=== PATIENT | female | born 2000 | race African-American/Black ===

== ENCOUNTER 2021-05-14 23:21 | Emergency (ER) | payer BC, SELFPAY ==
--- NOTE | ~2021-05-14 | XR_ITS ---
EXAMINATION: XR chest 2V DATE: 05/15/2021 00:31 INDICATION: Chest pain. TECHNIQUE: Frontal and lateral views of the chest were obtained. COMPARISON: None. FINDINGS: The chest demonstrates clear lungs without pneumonia, pleural effusion, or pneumothorax. Th e heart size is normal. IMPRESSION: 1. No acute cardiopulmonary disease. Reviewed, dictated and finalized at location A. TENANCE INSPECTOR
[2021-05-14 23:26] VITALS: BP 146/74; PULSE 88; RESP 16; TEMP 35.9; O2SAT 100
--- NOTE | 2021-05-14 23:30 | ECG_ITS ---
Measurements Intervals [place] Rate: 79 P: 57 WA: 139 QRS: 33 QRSD: 88 T: 13 QT: 388 QTc: 445 Interpretive Statements SINUS RHYTHM WITH MARKED SINUS ARRHYTHMIA NONSPECIFIC T-WAVE ABNORMALITY- ANT/INF LEADS BASELINE ARTIFACT- I, II, AVR, V1-V2 BORDERLINE ECG Electronically Signed On 05-15-2021 5:50:24 BUILDING ENGINEER by Vik Bowers D.O.
[2021-05-15 01:04] LABS: Basophils Percent Auto 0.2 % (0.2-1.2); Eosinophils Absolute Auto 0.1 K/mm3 (0-0.3); Eosinophils Percent Auto 0.9 % (0-4.4); Hematocrit 38.2 % (37.0-47.0); Hemoglobin 12.2 g/dL (12.0-15.0); Immature Granulocyte Absolute 0.03 K/mm3 (0.00-0.031); Immature Granulocyte Percent A 0.3 % (0-0.5); Lymphocytes Absolute Auto 2.63 K/mm3 (0.9-3.2); Lymphocytes Percent Auto 28.8 % (18.3-44.2); Mean Corpuscular HGB Conc 31.9 g/dl (32-36); Mean Corpuscular Hemoglobin 27.9 pg (26-34); Mean Corpuscular Volume 87.2 fl (80-100); Mean Platelet Volume 8.7 fl (7.4-10.4); Monocytes Absolute Auto 0.6 K/mm3 (0.1-0.6); Monocytes Percent Auto 6.5 % (2.6-8.5); Neutrophils Absolute Auto 5.8 K/mm3 (1.3-6.7); Neutrophils Percent Auto 63.3 % (45.5-73.1); Platelet Count Result 397 k/mm3 (150-375); Red Blood Count 4.38 M/mm3 (4.2-5.4); Red Cell Distribution Width 12.8 % (11.5-14.5); White Blood Count 9.1 K/mm3 (4.5-10.0)
[2021-05-15 01:13] LABS: INR 0.9
[2021-05-15 01:14] LABS: Partial Thromboplastin Time 27.6 SECONDS (22.3-36.8)
[2021-05-15 01:15] LABS: Alanine Aminotransferase 15 U/L (4-35); Albumin Level 4.5 g/dL (3.5-5.1); Alkaline Phosphatase 101 U/L (38-126); Anion Gap 12 mmol/L (8-16); Aspartate Amino Transferase 27 U/L (14-36); Bilirubin,Total 0.4 mg/dL (0.2-1.3); Blood Urea Nitrogen 13 mg/dL (7-17); Calcium 9.5 mg/dL (8.4-10.2); Carbon Dioxide 23 mmol/L (22-30); Chloride 103 mmol/L (98-107); Estimated CRCL calculation 114 ml/min; Estimated Glomerular Filt Rate > 60; Glucose 91 mg/dL (65-110); Lipase 26 U/L (23-300); Potassium 3.9 mmol/L (3.4-5.0); Sodium 138 mmol/L (137-145)
[2021-05-15 01:26] LABS: Troponin I < 0.012 ng/mL (0.000-0.034)
[2021-05-15 01:32] VITALS: BP 141/72; PULSE 90; RESP 18; TEMP 36.2; O2SAT 100
--- NOTE | 2021-05-15 02:46 | ED.CHESTPAIN ---
HPI - Chest Pain General Chief Complaint: Chest Pain Stated Complaint: chest tightness Time Seen by Provider: 05/15/21 01:51 Source: patient History of Present Illness HPI narrative: Patient presents with chest tightness and dizziness. Patient reports she had symptoms around 7:30 AM and has persisted throughout the day. Reports intermittent nausea and intermittent dizziness intermittent chest tightness. She denies any fevers chills cough congestion shortness of breath. She denies any vomiting or diarrhea. She is requesting a test. Denies any recent hospitalizations she denies any history of blood clots she denies any significant family history of cardiac disease Related Data Allergies Allergy/AdvReac Type Severity Reaction Status Date / Time No Known Allergies Allergy Verified 05/14/21 23:25 Review of Systems Review of Systems: CONSTITUTIONAL: Denies fever, chills, or sweats. EYES: Denies visual changes, redness, or discharge. ENT: Denies rhinorrhea, congestion, sore throat, or otalgia. CARDIOVASCULAR: Denies palpitations, or edema. RESPIRATORY: Denies cough or dyspnea. GASTROINTESTINAL: Denies abdominal pain, nausea, vomiting, or diarrhea. GENITOURINARY: Denies dysuria or hematuria. SKIN: Denies rash or itching. MUSCULOSKELETAL: Denies back pain, joint pain, or myalgia. NEUROLOGIC: Denies headache, numbness, or weakness. PSYCHIATRIC: Denies anxiety or depression. All systems reviewed & are unremarkable except as noted in HPI and below PMFSH Social History Social History (Updated 05/15/21 @ 02:49 by Quang Ho MD) Alcohol intake: current Substance use: never Exam Narrative: GENERAL: Well-appearing, well-nourished, and in no acute distress. HEAD: Normocephalic, atraumatic. EYES: PERRLA and EOMI. ENT: Nares clear, no rhinorrhea or epistaxis. Mucous membranes moist. NECK: Supple. No masses. No JVD CHEST: Clear to auscultation. No respiratory distress. No wheezes rales or rhonchi HEART: Regular rate and rhythm. No murmur heard. Normal peripheral pulses. ABDOMEN: Soft, nontender, nondistended, normal active bowel sounds. EXTREMITIES: Normal range of motion. No edema. SKIN: Warm, dry, no rash. NEURO: No focal deficits. Alert and oriented x3. PSYCH: Normal mood and affect. Course Reevaluation(s) Reevaluation #1: Patient is resting comfortably results and plan reviewed with patient. Patient comfortable outpatient plan. Date: 05/15/21 Time: 02:49 Vital Signs Vital signs: Vital Signs Temperature 35.9 C L 05/14/21 23:26 Pulse Rate 88 05/14/21 23:26 Respiratory Rate 16 05/14/21 23:26 Blood Pressure 146/74 H 05/14/21 23:26 Pulse Oximetry 100 05/14/21 23:26 Temperature 36.2 C L 05/15/21 01:32 Pulse Rate 76 05/15/21 02:58 Respiratory Rate 16 05/15/21 02:58 Blood Pressure 126/78 05/15/21 02:58 Pulse Oximetry 100 05/15/21 02:58 MDM - Chest Pain MDM Narrative Medical decision making narrative: H&P as above, vss, pt looks clinically well, exam reassuring, labs clinically unremarkable, img without acute process, additional labs/img considered, symptomatic relief available as needed, on reevaluation pt continues to looks clinically well. Symptoms remain of unclear etiology, dns ACS, PE, dissection, severe sepsis, . plan to tx/monitor as op w/ pcm f/u findings/plan discussed with pt, pt agree/comfortable with plan, return precautions given Lab Data Result diagrams: 05/15/21 00:55 05/15/21 00:55 Labs: Lab Results 05/15/21 05/15/21 05/15/21 Range/Units 00:55 00:55 00:55 WBC 9.1 (4.5-10.0) K/mm3 RBC 4.38 (4.2-5.4) M/mm3 Hgb 12.2 (12.0-15.0) g/dL Hct 38.2 (37.0-47.0) % MCV 87.2 (80-100) fl MCH 27.9 (26-34) pg MCHC 31.9 L (32-36) g/dl RDW 12.8 (11.5-14.5) % Plt Count 397 H (150-375) k/mm3 MPV 8.7 (7.4-10.4) fl Immature Gran % (Auto) 0.3 (0-0.5) % Neut % (Auto) 63.3 (45.
[2021-05-15 02:58] VITALS: BP 126/78; PULSE 76; RESP 16; O2SAT 100
== END 2021-05-15 02:58 | disposition home or self-care (01) ==
PROVIDERS: Emergency Provider Emergency Medicine
DX: R42 Dizziness and giddiness (principal); R94.31 Abnormal electrocardiogram [ECG] [EKG]
CPT/HCPCS: 36415; 71046; 80053; 81025; 83690; 84484; 85025; 85610; 85730; 93005; 99284

== ENCOUNTER 2021-07-21 11:48 | Emergency (ER) | payer BC, SELFPAY ==
--- NOTE | ~2021-07-21 | CT_ITS ---
EXAMINATION: CT abdomen pelvis w con DATE: 07/21/2021 13:34 INDICATION: Abdominal pain TECHNIQUE: Computed tomography (CT) of the abdomen and pelvis was performed with 100 mL Omnipaque-350 intravenous contrast. Automated exposure control and iterative reconstruction technique were employe d. The dose-length product was 1473.36 mGy-cm. COMPARISON: None FINDINGS: A few small nodular groundglass opacities in the bilateral lower lobes the largest measuring up to 1. 8 cm in the right lower lobe. A few the smaller groundglass nodules in the left lower lobe demonstrat e a tree-in-bud pattern consistent with endobronchial spread of disease. Heart size is normal. No per icardial or pleural effusion. Liver, gallbladder, spleen, pancreas, bilateral adrenal glands and kidn eys are normal. Bowels including the appendix are normal. Bladder, anteverted uterus and bilateral ad nexa are unremarkable. Minimal likely physiologic free fluid in the cul-de-sac. No pathologically enl arged abdominal or pelvic lymphadenopathy. Bones are unremarkable. IMPRESSION: 1. Nodular groundglass opacities extensive tree-in-bud opacities in the bilateral lower lobes most li collin pneumonia with differential including aspiration or pulmonary hemorrhage. 2. No acute intra-abdominal/other process with normal gallbladder and appendix. Reviewed, dictated and finalized at location A. MIXER TENDER IMPRESSION: 1. Nodular groundglass opacities extensive tree-in-bud opacities in the bilater al lower lobes most likely pneumonia with differential including aspiration or pulmonary hemorrhage. 2. No acute intra-abdominal/other process with normal gallbladder and appendix.
[2021-07-21 11:53] VITALS: BP 140/81; PULSE 86; RESP 20; TEMP 36.8; O2SAT 100
[2021-07-21 12:14] LABS: Basophils Percent Auto 0.3 % (0.2-1.2); Eosinophils Percent Auto 0.6 % (0-4.4); Hematocrit 39.6 % (37.0-47.0); Hemoglobin 12.4 g/dL (12.0-15.0); Immature Granulocyte Absolute 0.02 K/mm3 (0.00-0.031); Immature Granulocyte Percent A 0.3 % (0-0.5); Lymphocytes Absolute Auto 1.96 K/mm3 (0.9-3.2); Lymphocytes Percent Auto 29.6 % (18.3-44.2); Mean Corpuscular HGB Conc 31.3 g/dl (32-36); Mean Corpuscular Hemoglobin 27.9 pg (26-34); Mean Corpuscular Volume 89.2 fl (80-100); Mean Platelet Volume 8.5 fl (7.4-10.4); Monocytes Absolute Auto 0.4 K/mm3 (0.1-0.6); Monocytes Percent Auto 6.2 % (2.6-8.5); Neutrophils Absolute Auto 4.2 K/mm3 (1.3-6.7); Platelet Count Result 391 k/mm3 (150-375); Red Blood Count 4.44 M/mm3 (4.2-5.4); White Blood Count 6.6 K/mm3 (4.5-10.0)
[2021-07-21 12:20] LABS: Add Urine Microscopic? NO; Appearance Urine Clear (Clear); Bilirubin Urine Negative (Negative); Blood Urine Negative (Negative); Color Urine Yellow (Yellow); Glucose Urine UA Negative (Negative); Ketones Urine Negative (Negative); Leukocyte Esterase Ur Negative LEU/UL (Negative); Nitrate Urine Negative (Negative); Protein Urine Negative (Negative); Specific Grav Ur 1.018 (1.001-1.035); Urobilinogen Urine Negative mg/dL (<2.0)
[2021-07-21 12:30] LABS: Alanine Aminotransferase 15 U/L (4-35); Alkaline Phosphatase 94 U/L (38-126); Anion Gap 6 mmol/L (8-16); Aspartate Amino Transferase 26 U/L (14-36); Bilirubin,Total 0.3 mg/dL (0.2-1.3); Blood Urea Nitrogen 9 mg/dL (7-17); Calcium 9.1 mg/dL (8.4-10.2); Carbon Dioxide 25 mmol/L (22-30); Chloride 107 mmol/L (98-107); Estimated CRCL calculation 109 ml/min; Estimated Glomerular Filt Rate > 60; Glucose 101 mg/dL (65-110); Lipase 27 U/L (23-300); Potassium 4.1 mmol/L (3.4-5.0); Sodium 138 mmol/L (137-145)
[2021-07-21] MEDS: SODIUM CHLORIDE 0.9% IV 1,000 ML 999 ML IV CONT (13:40)
--- NOTE | 2021-07-21 19:08 | ED.ABDPAIN ---
HPI - Abdominal Pain General Chief Complaint: Abdominal Pain Stated Complaint: abd pain Time Seen by Provider: 07/21/21 11:52 Source: patient History of Present Illness HPI narrative: 21-year-old female presents today with complaints of intermittent abdominal pain and cramping that started yesterday. Patient currently without pain, nausea, vomiting. Patient states she had a BM yesterday, she has bowel movements every 2 to 3 days and they are normally hard. Patient denies fever, chills, body aches, urinary symptoms, or sick contacts. Related Data Allergies Allergy/AdvReac Type Severity Reaction Status Date / Time No Known Allergies Allergy Verified 07/21/21 11:56 Review of Systems Constitutional: Constitutional: Reports as per HPI, Denies chills, Denies fever(s) and Denies weakness ENT: Reports system reviewed and no additional complaints, except as documented Cardiovascular: Cardiovascular: Reports no additional cardiovascular complaints Respiratory: Respiratory: Reports no additional respiratory complaints Gastrointestinal: Gastrointestinal: Reports abdominal pain, Reports constipation, Reports nausea and Reports vomiting Genitourinary: Genitourinary: Reports no additional female genitourinary complaints Musculoskeletal: Musculoskeletal: Reports no additional musculoskeletal complaints PMFSH Social History Social History Alcohol intake: current Substance use: never Exam Narrative: GENERAL: Well-appearing, well-nourished, and in no acute distress. HEAD: Normocephalic, atraumatic. EYES: PERRLA and EOMI. ENT: Nares clear, no rhinorrhea or epistaxis. Mucous membranes moist. Oropharynx without tonsillar hypertrophy exudate or other lesions. Bilateral TMs pearly stubbs nonbulging NECK: Supple. No adenopathy or masses. No carotid bruits or JVD CHEST: Clear to auscultation. No respiratory distress. No wheezes rales or rhonchi HEART: Regular rate and rhythm. No murmur heard. Normal peripheral pulses. ABDOMEN: RLQ tenderness, negative for rebound tenderness, nondistended, normal active bowel sounds. EXTREMITIES: Normal range of motion. No edema. SKIN: Warm, dry, no rash. NEURO: No focal deficits. Alert and oriented x3. PSYCH: Normal mood and affect. Course Course Emergency Course: Patient with minimal pain and no nausea during stay. Reviewed with patient labs and will discharge home with follow up with primary for follow up on abdominal pain and CT findings. Vital Signs Vital signs: Vital Signs Temperature 36.8 C 07/21/21 11:53 Pulse Rate 86 07/21/21 11:53 Respiratory Rate 20 07/21/21 11:53 Blood Pressure 140/81 07/21/21 11:53 Pulse Oximetry 100 07/21/21 11:53 Temperature 36.8 C 07/21/21 11:53 Pulse Rate 86 07/21/21 11:53 Respiratory Rate 20 07/21/21 11:53 Blood Pressure 140/81 07/21/21 11:53 Pulse Oximetry 100 07/21/21 11:53 MDM - Abdominal Pain Differential Diagnosis Differential diagnosis: Likely abdominal pain, acute appendicitis and constipation Lab Data Attestation: I reviewed the patient's lab results. Result diagrams: 07/21/21 12:00 07/21/21 12:00 Labs: Lab Results 07/21/21 07/21/21 07/21/21 Range/Units 12:00 12:00 12:00 WBC 6.6 (4.5-10.0) K/mm3 RBC 4.44 (4.2-5.4) M/mm3 Hgb 12.4 (12.0-15.0) g/dL Hct 39.6 (37.0-47.0) % MCV 89.2 (80-100) fl MCH 27.9 (26-34) pg MCHC 31.3 L (32-36) g/dl RDW 13.0 (11.5-14.5) % Plt Count 391 H (150-375) k/mm3 MPV 8.5 (7.4-10.4) fl Immature Gran % (Auto) 0.3 (0-0.5) % Neut % (Auto) 63.0 (45.5-73.1) % Lymph % (Auto) 29.6 (18.3-44.2) % Coles % (Auto) 6.2 (2.6-8.5) % Eos % (Auto) 0.6 (0-4.4) % Baso % (Auto) 0.3 (0.2-1.2) % Lymph # (Auto) 1.96 (0.9-3.2) K/mm3 Coles # (Auto) 0.4 (0.1-0.6) K/mm3 Eos # (Auto) 0.0 (0-0.3) K/mm3 Baso # (Auto) 0.0
== END 2021-07-21 15:17 | disposition home or self-care (01) ==
PROVIDERS: Emergency Medicine; Emergency Provider Nurse Practitioner Family
DX: R10.84 Generalized abdominal pain (principal); R91.8 Other nonspecific abnormal finding of lung field
CPT/HCPCS: 36415; 74177; 80053; 81003; 81025; 83690; 85025; 96360; 99284; J7030; Q9967

== ENCOUNTER 2021-12-20 12:59 | Emergency (ER) | payer BC, SELFPAY ==
--- NOTE | ~2021-12-20 | XR_ITS ---
XR chest 2V DATE: 12/20/2021 13:54 INDICATION: Frontal chest pain TECHNIQUE: PA and lateral views COMPARISON: 05/15/2021 PA and lateral chest FINDINGS: Normal heart size. No hilar or mediastinal enlargement. There is mild atelectasis and/or in filtrate in the lower lung zones. Lungs otherwise are clear. No pleural effusion or pulmonary vascula r congestion or pneumothorax. Minimal dextroscoliosis of the thoracic spine. IMPRESSION: Mild atelectasis and/or infiltrate in the lower lung zones Reviewed, dictated and finalized at location B.
--- NOTE | 2021-12-20 13:02 | ECG_ITS ---
Measurements Intervals [place] Rate: 86 P: 56 WA: 157 QRS: 24 QRSD: 82 T: 1 QT: 366 QTc: 440 Interpretive Statements SINUS RHYTHM BORDERLINE ST-T WAVE ABNORMALITY- ANT/INF LEADS BORDERLINE ECG Electronically Signed On 12-20-2021 16:19:25 CDT by Vik Bowers D.O.
[2021-12-20 13:17] VITALS: BP 134/83; PULSE 92; RESP 16; TEMP 37; O2SAT 100
[2021-12-20 13:31] LABS: Basophils Percent Auto 0.4 % (0.2-1.2); Eosinophils Absolute Auto 0.1 K/mm3 (0-0.3); Eosinophils Percent Auto 0.6 % (0-4.4); Hematocrit 37.3 % (37.0-47.0); Hemoglobin 11.7 g/dL (12.0-15.0); Immature Granulocyte Absolute 0.04 K/mm3 (0.00-0.031); Immature Granulocyte Percent A 0.5 % (0-0.5); Lymphocytes Percent Auto 25.9 % (18.3-44.2); Mean Corpuscular HGB Conc 31.4 g/dl (32-36); Mean Corpuscular Hemoglobin 27.3 pg (26-34); Mean Corpuscular Volume 86.9 fl (80-100); Mean Platelet Volume 8.3 fl (7.4-10.4); Monocytes Absolute Auto 0.4 K/mm3 (0.1-0.6); Monocytes Percent Auto 4.7 % (2.6-8.5); Neutrophils Absolute Auto 5.3 K/mm3 (1.3-6.7); Neutrophils Percent Auto 67.9 % (45.5-73.1); Platelet Count Result 392 k/mm3 (150-375); Red Blood Count 4.29 M/mm3 (4.2-5.4); Red Cell Distribution Width 12.9 % (11.5-14.5); White Blood Count 7.7 K/mm3 (4.5-10.0)
[2021-12-20 13:42] LABS: Alanine Aminotransferase 17 U/L (6-35); Alkaline Phosphatase 103 U/L (38-126); Anion Gap 9 mmol/L (8-16); Aspartate Amino Transferase 21 U/L (14-36); Bilirubin,Total 0.4 mg/dL (0.2-1.3); Blood Urea Nitrogen 11 mg/dL (7-17); Calcium 8.8 mg/dL (8.4-10.2); Carbon Dioxide 22 mmol/L (22-30); Chloride 107 mmol/L (98-107); Estimated CRCL calculation 124 ml/min; Estimated Glomerular Filt Rate > 60; Glucose 107 mg/dL (65-110); Lipase 20 U/L (23-300); Potassium 3.5 mmol/L (3.4-5.0); Sodium 138 mmol/L (137-145)
[2021-12-20 13:44] LABS: Partial Thromboplastin Time 29.9 SECONDS (22.3-36.8); Prothrombin Time 13.1 Seconds (11.1-14.7)
[2021-12-20 13:53] LABS: Troponin I < 0.012 ng/mL (0.000-0.034)
[2021-12-20 15:17] VITALS: PULSE 81
[2021-12-20] MEDS: KETOROLAC 30 MG/ML VIAL (*BKC) IV PUSH (15:54)
--- NOTE | 2021-12-20 16:33 | PC.NURSE ---
Refuses 3 hour troponin.
[2021-12-20 16:43] LABS: D Dimer 0.81 ug/mL (<0.48)
--- NOTE | 2021-12-20 19:29 | ED.CHESTPAIN ---
HPI - Chest Pain General Chief Complaint: Chest Pain Stated Complaint: chest pain Time Seen by Provider: 12/20/21 15:27 Source: patient and RN notes reviewed Mode of arrival: ambulatory Limitations: no limitations History of Present Illness HPI narrative: This is a 21 year old female who presents for evaluation of midsternal chest pain. PAtient states she has been having midsternal chest pain for 2 weeks. She reports she feels pressure or like someone is standing on her chest with laying supine. She also reports it seems worse with movement and bending over. She has not been taking any medication for her pain. She has taken 2 covid test in the past 2 weeks, and both have been negative. She denies having URI symptoms, cough, fever, chills, leg swelling or calf pain. She does take oral contraception. She went to Urgent care today and she was referred to ER for evaluation. Related Data Home Medications Medication Instructions Recorded Confirmed buspirone 7.5 mg tablet mg 12/20/21 dulaglutide 0.75 mg/0.5 mL mg subcut 12/20/21 12/20/21 subcutaneous pen injector (Trulicity) escitalopram oxalate 10 mg tablet mg 12/20/21 hydroxyzine HCl 25 mg tablet mg 12/20/21 Allergies Allergy/AdvReac Type Severity Reaction Status Date / Time No Known Allergies Allergy Verified 12/20/21 13:16 Review of Systems Review of Systems: All systems reviewed & are unremarkable except as noted in HPI and below Constitutional: Constitutional: Denies chills, Denies fatigue and Denies fever(s) ENT: Denies nasal congestion and Denies sore throat Cardiovascular: Cardiovascular: Reports chest pain, Denies rapid heart rate and Denies slow heart rate Respiratory: Respiratory: Denies chest congestion, Denies cough and Reports dyspnea Gastrointestinal: Gastrointestinal: Denies abdominal pain, Denies bloating and Denies diarrhea PMFSH Past Medical History Medical History (Updated 12/20/21 @ 19:36 by Debora Bauer MD) Depression Surgical History Surgical History (Updated 12/20/21 @ 19:32 by Debora Bauer MD) No pertinent past surgical history Social History Social History (Updated 12/20/21 @ 19:32 by Debora Bauer MD) Smoking status: Never smoker Alcohol intake: current Substance use type: marijuana Exam Narrative: GENERAL: Well-appearing, well-nourished, and in no acute distress. HEAD: Normocephalic, atraumatic EYES: EOMI, conjunctiva clear without discharge NECK: Supple, without lymphadenopathy or mass RESPIRATORY: No respiratory distress, Airway patent, Respirations non-labored, Clear to auscultation without rales, rhonchi or wheeze, mild chest wall tenderness present HEART: Regular rate and rhythm. No murmur heard. Normal peripheral pulses. ABDOMEN: Soft, nontender, nondistended, normal active bowel sounds. No masses. No rebound or guarding, No organomegaly. EXTREMITIES: No edema, normal strength with full range of motion. SKIN: Warm, dry, normal color without rash NEURO: Alert and oriented x3. CN 2-12 grossly intact. No focal deficits. PSYCH: Normal mood and affect. Course Reevaluation(s) Reevaluation #1: I discussed with patient that her d dimer was elevated and due to her having OCP and chest pain, I recommend this test. She states she has been in ER for 5 hours and she is ready to go. I discussed wtih patient that in order to rule out PE this test needs to be done. I Discussed risk of not getting procedure and possible . She states she understands and she is signing AMA Date: 12/20/21 Time: 15:00 Vital Signs Vital signs: Vital Signs Temperature 98.6 F 12/20/21 13:17 Pulse Rate 92 12/20/21 13:17 Respiratory Rate 16 12/20/21 13:17 Blood Pressure 134/83 12/20/21 13:17 Pulse Oximetry 100 12/20/21 13:17 Temperature 98.6 F 12/20/21 13:17 Pulse Rate 81 12/20/21 15:17 Respiratory Rate 16 12/20/21 13:17 Blood Pressure 134/83 12/20/21 13
== END 2021-12-20 17:29 | disposition left against medical advice (07) ==
LOC: ANHED 15:54
PROVIDERS: Emergency Medicine; Emergency Provider General Practice
DX: R07.89 Other chest pain (principal); R79.1 Abnormal coagulation profile; F32.A Depression, unspecified; R94.31 Abnormal electrocardiogram [ECG] [EKG]
CPT/HCPCS: 36415; 71046; 80053; 83690; 84484; 85025; 85380; 85610; 85730; 93005; 96374; 99284; J1885

== ENCOUNTER 2022-05-21 09:17 | Emergency (ER) | payer BC, SELFPAY ==
--- NOTE | ~2022-05-21 | XR_ITS ---
Left wrist Technique: PA, oblique, lateral, and ulnar deviation views were obtained. Clinical History: Pain Findings: No acute fracture or dislocation is seen. Osseous alignment is anatomic. Joint spaces are p reserved. Soft tissues are unremarkable. Impression: Unremarkable left wrist radiographs. Reviewed, dictated and finalized at location . ULTANT RN Impression: Unremarkable left wrist radiographs.
[2022-05-21 09:44] VITALS: BP 134/90; PULSE 81; RESP 16; TEMP 36.9; O2SAT 100
--- NOTE | 2022-05-21 09:54 | ED.GENADULT ---
HPI - General Adult General Chief complaint: Extremity Injury, Upper Stated complaint: lt wrist injury Source: patient Mode of arrival: ambulatory Limitations: no limitations History of Present Illness HPI narrative: Patient presents for evaluation of multiple complaints. Her primary concern is left wrist pain. She states that she sleeps with her left wrist flexed beneath her chin. She had a recent fall out of a Hammock at a furniture store. She does not remember landing on her wrist but states that she has had pain since that time. She does not providing with a descriptive quality or numerical rating to the pain. She states pain radiates up her forearm. Movement makes her pain worse. She has been taking tylenol without considerable improvement in her symptoms. She is also concerned about sick symptoms for the past two days. Symptoms include a sore throat and cough. She denies chills and SOB. She has chronic diarrhea, not worse from baseline. No recent sick contacts to her knowledge. Related Data Home Medications Medication Instructions Recorded Confirmed buspirone 7.5 mg tablet mg 12/20/21 escitalopram oxalate 10 mg tablet mg 12/20/21 hydroxyzine HCl 25 mg tablet mg 12/20/21 Allergies Allergy/AdvReac Type Severity Reaction Status Date / Time No Known Allergies Allergy Verified 12/20/21 13:16 Review of Systems Review of Systems: CONSTITUTIONAL: Denies fever, chills, or sweats. EYES: Denies visual changes, redness, or discharge. ENT: Reports sore throat.Denies rhinorrhea, congestion, or otalgia. CARDIOVASCULAR: Denies chest pain, palpitations, or edema. RESPIRATORY: reports cough. Denies shortness of breath. GASTROINTESTINAL: Denies abdominal pain, nausea, vomiting, or diarrhea. GENITOURINARY: Denies dysuria or hematuria. SKIN: Denies rash or itching. MUSCULOSKELETAL: Denies back pain, joint pain, or myalgia. NEUROLOGIC: Denies headache, numbness, dizziness, or weakness. PSYCHIATRIC: Denies anxiety or depression. [facility] Past Medical History Medical History Depression Surgical History Surgical History No pertinent past surgical history Family History Family History (Reviewed 05/21/22 @ 09:57 by Collin Chau, APPLICATION OPERATIONS ENGINE[facility]) Mother Family history non-contributory Social History Social History Smoking status: Never smoker Alcohol intake: current Substance use: current Substance use type: marijuana Living arrangements: with family Occupation/Education: student Gender identity (if verbalized by the patient): Female Spiritual care concerns: No Exam Narrative: GENERAL: Well-appearing, well-nourished, and in no acute distress. HEAD: Normocephalic, atraumatic. EYES: PERRLA and EOMI. ENT: Nares clear, no rhinorrhea or epistaxis. Mucous membranes moist. Oropharynx without tonsillar hypertrophy exudate or other lesions. Bilateral TMs pearly stubbs nonbulging NECK: Supple. No adenopathy or masses. No carotid bruits or JVD CHEST: Clear to auscultation. No respiratory distress. No wheezes rales or rhonchi HEART: Regular rate and rhythm. No murmur heard. Normal peripheral pulses. ABDOMEN: Soft, nontender, nondistended, normal active bowel sounds. EXTREMITIES: There is tenderness in the left wrist without crepitus, swelling or deformity. 4/5 hand outpatient phlebotomist strength on left. 5/5 hand outpatient phlebotomist strength on right. Trace swelling in left wrist. SKIN: Warm, dry, no rash. NEURO: No focal deficits. Alert and oriented x3. PSYCH: Normal mood and affect. Course Course Emergency Course: This is a 22-year-old female presented for evaluation of left wrist pain. X-ray was negative. Advise purchasing a Velcro wrist splint. She requested sling which was provided. Advised on RICE therapy. Ibuprofen for pain at home. In
== END 2022-05-21 10:43 | disposition home or self-care (01) ==
PROVIDERS: Emergency Provider Nurse Practitioner
DX: S66.912A Strain of unspecified muscle, fascia and tendon at wrist and hand level, left hand, initial encounter (principal); B34.9 Viral infection, unspecified; W07.XXXA Fall from chair, initial encounter; Y92.512 Supermarket, store or market as the place of occurrence of the external cause
CPT/HCPCS: 73110; 87081; 87804; 99213; A4565; G0463

== ENCOUNTER 2022-06-21 21:13 | Emergency (ER) | payer BC, SELFPAY ==
[2022-06-21] VITALS (11 sets, daily range): BP systolic 112–158; BP diastolic 43–129; PULSE 72–117; RESP 16–24; TEMP 36.6; O2SAT 88–100
--- NOTE | 2022-06-21 21:20 | ECG_ITS ---
Measurements Intervals [place] Rate: 115 P: 76 NM: 159 QRS: 43 QRSD: 94 T: 18 QT: 342 QTc: 474 Interpretive Statements SINUS TACHYCARDIA LEFT ATRIAL ENLARGEMENT INCOMPLETE RIGHT BUNDLE BRANCH BLOCK NONSPECIFIC T-WAVE ABNORMALITY- ANT/INF LEADS ABNORMAL ECG COMPARED TO ECG 12/20/2021 13:22:48 SINUS TACHYCARDIA NOW PRESENT Electronically Signed On 06-22-2022 9:55:14 FINAL INSPECTOR by Vik Bowers D.O.
[2022-06-21] MEDS: LORazepam INJ (*CRX) 2 MG/ML VIAL IM (21:25)
[2022-06-21] MEDS: OLANZapine 10 MG INJ VIAL IM (21:26)
[2022-06-21 21:42] LABS: Glucose Point of Care 87 mg/dl (65-105)
[2022-06-21] MEDS: WATER, STERILE FOR INJECTION 10 ML VIAL XX (21:42)
--- NOTE | 2022-06-21 22:14 | PC.NURSE ---
Patient threatening staff and trying to flip stretcher. patient uncooperative. patient given 500mg IM ketamine per MD Soliz. patient remains restrained.
[2022-06-21] MEDS: KETAMINE HCL (*CRX) 500 MG/10 ML VIAL IM (22:34)
--- NOTE | 2022-06-21 22:40 | ED.GENADULT ---
HPI - General Adult General Chief complaint: Psychiatric Symptoms <Ryne Soliz MD - Last Filed: 06/22/22 06:41> Stated complaint: MANIC EPISODE <Ryne Soliz MD - Last Filed: 06/22/22 06:41> Time Seen by Provider: 06/21/22 21:18 <Ryne Soliz MD - Last Filed: 06/22/22 06:41> History of Present Illness HPI narrative: Patient a 22-year-old female who presents the emergency department with chief complaint of acute agitation. Per EMS and [facility] EP The patient has a long running history of mental health issues and today has been manic and not cooperative. Police was called to the house and they did a involuntary committal for the patient. The patient was extremely noncooperative and combative requiring chemical and physical restraints in route to the emergency department. <Ryne Soliz MD - Last Filed: 06/22/22 06:41> Related Data Home medications: Home Medications Medication Instructions Recorded Confirmed buspirone 7.5 mg tablet 7.5 mg DIRECTED 12/20/21 05/21/22 escitalopram oxalate 10 mg tablet 10 mg DIRECTED 12/20/21 05/21/22 hydroxyzine HCl 25 mg tablet 25 mg DIRECTED 12/20/21 05/21/22 <Ryne Soliz MD - Last Filed: 06/22/22 06:41> Allergies/adverse reactions: Allergies Allergy/AdvReac Type Severity Reaction Status Date / Time No Known Allergies Allergy Verified 06/21/22 22:32 <Ryne Soliz MD - Last Filed: 06/22/22 06:41> Review of Systems Review of Systems: A 10 system review of systems was completed on the patient and is negative except for what is stated in the HPI. Nursing and ancillary documentation was reviewed. <Ryne Soliz MD - Last Filed: 06/22/22 06:41> PMFSH Past Medical History Medical History: Medical History Depression <Ryne Soliz MD - Last Filed: 06/22/22 06:41> Surgical History Surgical History: Surgical History No pertinent past surgical history <Ryne Soliz MD - Last Filed: 06/22/22 06:41> Family History Family History: Family History Mother Family history non-contributory <Ryne Soliz MD - Last Filed: 06/22/22 06:41> Social History Social History: Social History Smoking status: Never smoker Alcohol intake: current Substance use: current Substance use type: marijuana Living arrangements: with family Occupation/Education: student Gender identity (if verbalized by the patient): Female Spiritual care concerns: No <Ryne Soliz MD - Last Filed: 06/22/22 06:41> Exam Narrative: GENERAL: Acutely agitated noncooperative. HEAD: Normocephalic, atraumatic. EYES: PERRLA and EOMI. ENT: Nares clear, no rhinorrhea or epistaxis. Mucous membranes moist. NECK: Supple. CHEST: Clear to auscultation. No respiratory distress. HEART: Regular rate and rhythm. No murmur heard. Normal peripheral pulses. ABDOMEN: Soft, nontender, nondistended, normal active bowel sounds. EXTREMITIES: Normal range of motion. No edema. SKIN: Warm, dry, no rash. NEURO: No focal deficits. Alert and oriented x3. PSYCH: Agitated. <Ryne Soliz MD - Last Filed: 06/22/22 06:41> Course Consultations Consultation #1: Patient require inpatient psychiatric treatment in the opinion of crisis and disposition. Involuntary paperwork has been filled out. Patient considered medically stable for psychiatric admission. <Yosef Hdz MD - Last Filed: 06/22/22 15:59> Date: 06/22/22 <Yosef Hdz MD - Last Filed: 06/22/22 15:59> Time: 15:17 <Yosef Hdz MD - Last Filed: 06/22/22 15:59> Consultation #2: Patient
[2022-06-21 23:21] LABS: Basophils Percent Auto 0.4 % (0.2-1.2); Eosinophils Percent Auto 0.4 % (0-4.4); Hematocrit 37.5 % (37.0-47.0); Immature Granulocyte Absolute 0.03 K/mm3 (0.00-0.031); Immature Granulocyte Percent A 0.4 % (0-0.5); Lymphocytes Absolute Auto 2.41 K/mm3 (0.9-3.2); Lymphocytes Percent Auto 29.1 % (18.3-44.2); Mean Corpuscular Volume 87.6 fl (80-100); Mean Platelet Volume 8.8 fl (7.4-10.4); Monocytes Absolute Auto 0.7 K/mm3 (0.1-0.6); Monocytes Percent Auto 8.3 % (2.6-8.5); Neutrophils Absolute Auto 5.1 K/mm3 (1.3-6.7); Neutrophils Percent Auto 61.4 % (45.5-73.1); Platelet Count Result 294 k/mm3 (150-375); Red Blood Count 4.28 M/mm3 (4.2-5.4); Red Cell Distribution Width 12.9 % (11.5-14.5); White Blood Count 8.3 K/mm3 (4.5-10.0)
[2022-06-21 23:33] LABS: Alanine Aminotransferase 24 U/L (6-35); Albumin Level 4.3 g/dL (3.5-5.1); Alkaline Phosphatase 101 U/L (38-126); Anion Gap 7 mmol/L (8-16); Aspartate Amino Transferase 34 U/L (14-36); Bilirubin,Total 0.5 mg/dL (0.2-1.3); Blood Urea Nitrogen 11 mg/dL (7-17); Calcium 8.8 mg/dL (8.4-10.2); Carbon Dioxide 22 mmol/L (22-30); Chloride 105 mmol/L (98-107); Estimated CRCL calculation 118 ml/min; Estimated Glomerular Filt Rate > 60; Glucose 101 mg/dL (65-110); Potassium 3.2 mmol/L (3.4-5.0); Sodium 134 mmol/L (137-145)
[2022-06-21 23:34] LABS: Acetaminophen < 10 ug/mL (10-30)
[2022-06-21 23:51] LABS: Ethanol < 10 mg/dL (<10); Salicylate < 1.0 mg/dL (2-20)
[2022-06-22] VITALS (16 sets, daily range): BP systolic 116–134; BP diastolic 63–114; PULSE 70–100; RESP 18–29; O2SAT 99–100
--- NOTE | 2022-06-22 00:07 | PC.NURSE ---
Spoke with patient mother and patient mother states she hasn't taken her medications since last friday. patient was recently admitted to inpatient psych a month ago.
[2022-06-22 00:59] LABS: Appearance Urine Cloudy (Clear); Bilirubin Urine 1+ (Negative); Blood Urine Negative (Negative); Color Urine Yellow (Yellow); Glucose Urine UA Negative (Negative); Ketones Urine 2+ mg/dL (Negative); Leukocyte Esterase Ur Negative LEU/UL (Negative); Nitrate Urine Negative (Negative); Protein Urine 1+ mg/dL (Negative); Specific Grav Ur >= 1.030 (1.001-1.035); Urobilinogen Urine 0.2 mg/dL (<2.0); pH Urine 5.5 (5.0-9.0)
[2022-06-22 01:20] LABS: Bacteria Urine Trace /hpf; Mucus Urine Few /lpf; Squamous Epithelial Cell Urine Moderate /hpf (Few)
[2022-06-22 01:25] LABS: Add Urine Microscopic? YES
[2022-06-22 01:26] LABS: Amphetamine Screen Urine Negative (Negative); Barbiturate Screen Urine Negative (Negative); Benzodiazepines Screen Urine Positive (Negative); Cannabinoid Screen Urine Positive (Negative); Cocaine Screen Urine Negative (Negative); Methadone Screen Urine Negative (Negative); Opiate Screen Urine Negative (Negative); Phencyclidine Screen Urine Negative (Negative)
--- NOTE | 2022-06-22 02:40 | PC.NURSE ---
patient awake, asking to leave at this time. explained to patient she is unable to leave at this time. patient redirected to lay back down. patient cooperative at this time.
--- NOTE | 2022-06-22 07:38 | PC.NURSE ---
Patient's mother and father called for more information, they are requesting that their daughter gets the help they need and that she is placed into a psychiatric hospital. Patient's father #[phone] Frank Monreal
[2022-06-22 08:49] LABS: Influenza A QL RT-PCR Negative (Negative); Influenza B QL RT-PCR Negative (Negative); SARS-CoV-2 RNA PCR Negative
--- NOTE | 2022-06-22 14:47 | PC.NURSE ---
facesheet faxed to [place] at [phone]. [place]' fax number is [phone]
--- NOTE | 2022-06-22 17:33 | PC.NURSE ---
patient reinforced that she is going to a treatment facility with an involuntary petition. patients parents are aware and feel this is the right next step in her care.
--- NOTE | 2022-06-26 22:44 | PC.NURSE ---
Late entry: restraint order was cancelled in error on 06/22/22 and should have reflected complete.
== END 2022-06-22 20:23 ==
PROVIDERS: Emergency Medicine; Emergency Provider Emergency Medicine
DX: F30.9 Manic episode, unspecified (principal); F29 Unspecified psychosis not due to a substance or known physiological condition; Z20.822 Contact with and (suspected) exposure to COVID-19
CPT/HCPCS: 36415; 80053; 80307; 81001; 81025; 82948; 84443; 85025; 87086; 87088; 87636; 93005; 96372; 99285; J2060